=== PATIENT | male | born 1970 | race Caucasian/White ===

== ENCOUNTER 2020-04-14 10:04 | Emergency (ER) | payer BC | END 2020-04-14 13:01 | disposition home or self-care (01) | LOC: JVIRT 10:04 | DX: Z03.818 Encounter for observation for suspected exposure to other biological agents ruled out (principal) | CPT/HCPCS: C9803; G2012-GT; U0003 ==

== ENCOUNTER 2020-05-28 17:33 | Emergency (ER) | payer BC | END 2020-05-28 18:47 | disposition home or self-care (01) | LOC: JVIRT 17:33 | DX: Z11.52 Encounter for screening for COVID-19 (principal) | CPT/HCPCS: C9803; G2012-GT; U0003 ==